=== PATIENT | female | born 1995 | race Caucasian/White ===

== ENCOUNTER 2018-01-19 15:21 | Emergency (ER) | payer BC ==
[~2018-01-19] VITALS: Ht 162.6 cm; Wt 113.3 kg
[~2018-01-19 15:21] MED LIST: MOTRIN800 MG PO
[2018-01-19 16:02] LABS: HEMATOCRIT 37.4 % (36.0-46.0); HEMOGLOBIN 12.8 G/DL (11.9-15.5); MCH 29.5 PG (29.0-34.0); MCHC 34.2 G/DL (30.0-36.0); MCV 86.2 FL (83-99); PLATELET COUNT 249 K/uL (156-360); RBC DIS.WIDTH-CV 12.9 % (11.8-14.6); RBC DIS.WIDTH-SD 40.3 % (39-53); RED BLOOD COUNT 4.34 M/uL (3.80-5.20); WHITE BLOOD COUNT 8.3 K/uL (4.1-10.2)
[2018-01-19 16:12] LABS: ALBUMIN 4.1 g/dL (3.2-4.8); CHLORIDE 103 mEq/L (99-109); POTASSIUM 4.1 mEq/L (3.7-5.4); SODIUM 140 mEq/L (136-147)
[2018-01-19 16:14] LABS: GLUCOSE 91 mg/dL (70-99); TOTAL PROTEIN 6.8 g/dL (6.4-8.3)
[2018-01-19 16:16] LABS: TOTAL BILIRUBIN 0.3 mg/dL (0.0-1.0)
[2018-01-19 16:18] LABS: ALKALINE PHOSPHATASE 66 IU/L (3-129); CREATININE 0.8 mg/dL (0.6-1.3); GFR ESTIMATE (CALCULATED) > 59 mL/min/
[2018-01-19 16:19] LABS: AST (GOT) 12 IU/L (2-34); UREA NITROGEN (BUN) 10 mg/dL (9-23)
[2018-01-19 16:21] LABS: ALT (GPT) 13 IU/L (3-49)
[2018-01-19 16:28] LABS: QUANTITATIVE HCG < 4.0 MIU/ML
[2018-01-19] MEDS ORDERED: FLEXERIL10 MG PO (16:34)
[2018-01-19] MEDS ORDERED: MOTRIN800 MG PO (16:34)
[2018-01-19] MEDS ORDERED: LIDODERM 5% P1 PATCH TD (16:34)
[2018-01-19 17:09] VITALS: BP 120/77
== END 2018-01-19 17:11 | disposition home or self-care (01) ==
LOC: EME 15:21
PROVIDERS: Nurse Practitioner Family
DX: S39.012A Strain of muscle, fascia and tendon of lower back, initial encounter (principal); M62.838 Other muscle spasm; R10.84 Generalized abdominal pain; X50.1XXA Overexertion from prolonged static or awkward postures, initial encounter; F32.9 Major depressive disorder, single episode, unspecified; F41.9 Anxiety disorder, unspecified; G89.29 Other chronic pain; F17.200 Nicotine dependence, unspecified, uncomplicated
CPT/HCPCS: 80053; 84702; 85027; 99281; 99283; J1100